=== PATIENT | male | born 1955 | race Caucasian/White ===

== ENCOUNTER 2017-11-23 19:49 | Emergency (ER) | payer OTHER ==
--- NOTE | 2017-11-23 20:02 | PDOC ---
Rapid Medical Evaluation Time Seen by Provider: 11/23/17 19:58 Medical Evaluation: Allergies Allergy/AdvReac Type Severity Reaction Status Date / Time No Known Allergies Allergy Verified 05/05/13 14:03 11/23/17 19:58 I have performed a brief in -person evaluation of this patient. The patient presents with a chief complaint of: SOB, breathed in cleaning solution/ [employer] [place]. Pt states poured grounds cleaner down the drain @~1000 today , "fumes" peppered face causing him to breath in. 2004hrs: Called Poison control [phone]. 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 m,ay cause Throat/nasal passage irritation. CXr to check for infiltrates Neg tx prn for SOB Supportive burn care Irrigation Pertinent physical exam findings:B/L LL exp wheezing I have ordered the following: ekg The patient will proceed to the ED for further evaluation.
[2017-11-23 20:03] VITALS: BP 142/98; PULSE 123; TEMP 97.7; BMI 30.8
--- NOTE | 2017-11-23 22:03 | PDOC ---
History of Present Illness - General Chief Complaint: Shortness of Breath Stated Complaint: FATIGUE Time Seen by Provider: 11/23/17 19:58 History Source: Patient Exam Limitations: No Limitations - History of Present Illness Initial Comments: CHIEF COMPLAINT: 62 y/o afebrile male with PMH IDDM, CAD with 1 stent (on plavix), HTN, HLD, asthma c/o difficulty breathing after inhaling EL [place] solution at approximately 10am this morning. HISTORY OF PRESENT ILLNESS: The patient was trying to unclog his bathroom drain. WHen he poured the solution down the drain there were fumes. He tried to open all the windows but he states he inhaled it and he has had difficulty breathing since then. He denies f/c, dizziness, n/v/d, ZULETA, neck pain, changes to vision/hearing, abd pain. Vital signs on arrival are notable for pulse of 123 with O2 sat of 95% on RA.. REVIEW OF SYSTEMS: GENERAL/CONSTITUTIONAL: No fever/chills. No weakness. No weight change. HEAD, EYES, EARS, NOSE AND THROAT: No change in vision. No ear pain or discharge. No sore throat. CARDIOVASCULAR: +SOB. No chest pain. RESPIRATORY: +dry cough. No wheezing, or hemoptysis. GASTROINTESTINAL: No abd pain, nausea, vomiting, diarrhea. GENITOURINARY: No dysuria, frequency, or change in urination. MUSCULOSKELETAL: No joint or muscle swelling or pain. No neck or back pain. SKIN: No rash or easy bruising. NEUROLOGIC: No headache, vertigo, loss of consciousness, or loss of sensation. PHYSICAL EXAM: GENERAL: The patient is awake, alert, and fully oriented, in no acute distress. HEAD: Normal with no signs of trauma. ENT: Pupils equal, round and reactive to light, extraocular movements intact, sclera anicteric, conjunctiva clear. Dry cough. LUNGS: Expiratory wheezing across all posterior lung camarena. CV: RRR, S1/S2, no MRG. Cap refill < 2 sec. ABDOMEN: Soft, non-distended, non-tender even to deep palpation, no hepatomegaly or splenomegaly, no masses. EXTREMITIES: Normal range of motion, no edema. NEUROLOGICAL: Normal speech, normal gait. CN II-XII grossly intact. SKIN: Warm, dry, normal turgor, no rashes or lesions noted. Past History - Past Medical History Allergies/Adverse Reactions: Allergies Allergy/AdvReac Type Severity Reaction Status Date / Time No Known Allergies Allergy Verified 05/05/13 14:03 Home Medications: Ambulatory Orders Atorvastatin Ca [Lipitor] 40 mg PO DAILY 05/05/13 Metformin HCl [Glucophage -] 1,000 mg PO BID 05/05/13 Pregabalin [Lyrica] 150 mg PO Q12H 05/05/13 Albuterol Sulfate Inhaler - [Ventolin HFA Inhaler -] 1 - 2 inh PO PRN 11/23/15 Aspirin Coated [Ecotrin -] 81 mg PO DAILY 11/23/15 Enalapril Maleate [Vasotec -] 2.5 mg PO DAILY 11/23/15 Isosorbide Mononitrate [Imdur -] 30 mg PO DAILY 11/23/15 Metoprolol Succinate [Toprol Xl] 50 mg PO DAILY 11/23/15 Ramipril [Altace] 5 mg PO DAILY 11/23/15 Calcium Carbonate/Vitamin D3 [Calcium 600/Vit D 400 Caplet] 1 each PO BID Cyanocobalamin [Vitamin B12 -] 1,000 mcg PO DAILY 11/24/15 Insulin Aspart Prot/Insuln Asp [Novolog Mix 70-30 Vial] 20 unit SQ ACBK Insulin Aspart Prot/Insuln Asp [Novolog Mix 70-30 Vial] 30 unit SQ ACDIN Milk Thistle Seed Extract [Milk Thistle Extract] 175 mg PO DAILY 11/24/15 Naproxen [Naprosyn -] 500 mg PO PRN PRN 11/24/15 Anemia: No Asthma: Yes Cancer: No Cardiac Disorders: Yes ([place]) CVA: No COPD: No CHF: No Dementia: No Diabetes: Yes (INSULIN DEPENDENT DIABETES) GI Disorders: Yes (INTERMITTENT L,MID , RIGHT ABDOMINAL PAIN) Disorders: No HTN: No Hypercholesterolemia: Yes Liver Disease: No Seizures: No Thyroid Disease: No - Surgical History Abdominal Surgery: No Appendectomy: No Cardiac Surgery: Yes (CARDIAC CATH.WITH DRUG ELUTING CARDIAC STENT) Cholecystectomy: No Lung Surgery: No Neurologic Surgery: No Orthopedic Surgery: No - Suicide/Smoking/Psychosocial Hx Smoking History: Current every day smoker Have you smoked in the past 12 months: Yes Number of Cigarettes Smoked Daily: 6 Information on smoking cessation initiated: No 'Breaking Loose' booklet given: 11/30/15 Hx Alcohol Use: No Drug/Substance Use Hx: No Substance Use Type: None *Physical Exam - Vital Signs Last Vital Signs Temp Pulse Resp BP Pulse Ox 97.7 F 123 H 20 142/98 95 11/23/17 19:58 11/23/17 19:58 11/23/17 19:58 11/23/17 19:58 11/23/17 19:58 ED Treatment Course - RADIOLOGY Radiology Studies Ordered: Category Date Time Status CHEST PA & LAT [RAD] Stat Radiology 11/23/17 21:53 Ordered Medical Decision Making - Medical Decision Making A/P: 62 y/o male with SOB after inhaling [place] solution at 10am ( approximately 12 hours ago). scott Gandhi Harrison NUR called Poison Control. The intructions are below: 2004hrs: Called Poison control [phone]. 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 m,ay cause Throat/nasal passage irritation. CXr to check for infiltrates Neg tx prn for SOB Supportive burn care Irrigation Ordered EKG, CXR and duonebs. Pt remains tachycardic and has an abnormal EKG. Will send to main ER for cardiac workup *DC/Admit/Observation/Transfer Diagnosis at time of Disposition: Inhalation injury, Shortness of breath - Discharge Dispostion Condition at time of disposition: Improved - Referrals Referrals: Ty Ordaz MD [Primary Care Provider] - - Patient Instructions Printed Discharge Instructions: DI for Inhalation Injury - Post Discharge Activity
[2017-11-23] MEDS ORDERED: ALBUTEROL SO4 2.5/IPRATROPIUM 0.5 INH SOL 3 ML VIAL.NEB. NEB ONE (22:04)
[2017-11-23] MEDS: ALBUTEROL SO4 2.5/IPRATROPIUM 0.5 INH SOL 3 ML VIAL.NEB. NEB SCH ×2 (22:14→22:58)
--- NOTE | 2017-11-25 11:36 | EKG ---
Test Reason : Blood Pressure : / mmHG Vent. Rate : 107 BPM Atrial Rate : 107 BPM P-R Int : 142 ms QRS Dur : 136 ms QT Int : 382 ms P-R-T Axes : 073 089 035 degrees QTc Int : 509 ms SINUS TACHYCARDIA RIGHT BUNDLE BRANCH BLOCK ABNORMAL ECG WHEN COMPARED WITH ECG OF 17-NOV-2010 14:46, RIGHT BUNDLE BRANCH BLOCK IS NOW PRESENT Confirmed by AZIZA ZAVALA MD ([id number]) on 11/25/2017 11:36:24 AM Referred By: KARTHIK Confirmed By:AZIZA ZAVALA MD
== END 2017-11-23 23:28 | disposition home or self-care (01) ==
LOC: JER 19:49 → JERFT 19:49 → JER 23:28
PROC: 3E0F7GC Introduction of Other Therapeutic Substance into Respiratory Tract, Via Natural or Artificial Opening (ICD-10-PCS; principal; 2017-11-23)
DX: T65.891A Toxic effect of other specified substances, accidental (unintentional), initial encounter (principal); R06.02 Shortness of breath; Y92.038 Other place in apartment as the place of occurrence of the external cause; I25.10 Atherosclerotic heart disease of native coronary artery without angina pectoris; I10 Essential (primary) hypertension; F17.210 Nicotine dependence, cigarettes, uncomplicated; Z95.5 Presence of coronary angioplasty implant and graft; E11.9 Type 2 diabetes mellitus without complications; Z79.4 Long term (current) use of insulin; E78.00 Pure hypercholesterolemia, unspecified
CPT/HCPCS: 71046-TC; 93005; 93010; 94640; 99281-25

== ENCOUNTER 2018-05-19 22:06 | Emergency (ER) | payer OTHER ==
[2018-05-19 22:20] VITALS: BP 143/66; PULSE 102; BMI 32.5
--- NOTE | 2018-05-20 00:12 | PDOC ---
History of Present Illness - General History Source: Patient, Significant Other Exam Limitations: No Limitations <Karlene Torrez - Last Filed: 05/20/18 01:15> <RlMaría Anne - Last Filed: 05/20/18 02:04> - General Chief Complaint: Palpitations Stated Complaint: CHEST PAIN Time Seen by Provider: 05/19/18 22:39 - History of Present Illness Initial Comments: 05/20/18 00:45 The patient is a 62 year old male with a significant PMHx of IDDM, CAD, [place] s/p 1 stent (on plavix), HTN, HLD, asthma, who presents accompanied by his for evaluation of palpitations and chest pain around 7:30PM. The patient states he was lying on the couch when he felt "palpitations". He states he told his of his palpitations who then became very concerned and insisted the patient come to the ED. The patient states his provoked his chest pain. He describes the pain as a localized tightness to his midsternal region, 7/10 in severity and constant. He denies palpitations now and states his chest discomfort has subsided to about a 5/10. He reportedly took "half of a 5mg Valium" along with an aspirin. He states his made him come and he does not want any labs drawn. He denies any other complaints. He states he has an appointment with Dr. Gamble next week. He reports a normal echo last month. The patient denies shortness of breath, headache and dizziness. The patient denies fever, chills, nausea, vomit, diarrhea and constipation. The patient denies dysuria, frequency, urgency and hematuria. Allergies: NKDA Past surgical history: Social history: PCP - Dr. Ty Ordaz Cards: Dr. Gamble (Karlene Torrez) Past History <Karlene Torrez - Last Filed: 05/20/18 01:15> - Past Medical History Anemia: No Asthma: Yes Cancer: No Cardiac Disorders: Yes ([place]) CVA: No COPD: No CHF: No Dementia: No Diabetes: Yes (INSULIN DEPENDENT DIABETES) GI Disorders: Yes (INTERMITTENT L,MID , RIGHT ABDOMINAL PAIN) Disorders: No HTN: No Hypercholesterolemia: Yes Liver Disease: No Seizures: No Thyroid Disease: No - Surgical History Abdominal Surgery: No Appendectomy: No Cardiac Surgery: Yes (CARDIAC CATH.WITH DRUG ELUTING CARDIAC STENT) Cholecystectomy: No Lung Surgery: No Neurologic Surgery: No Orthopedic Surgery: No - Suicide/Smoking/Psychosocial Hx Smoking History: Current every day smoker Have you smoked in the past 12 months: Yes Number of Cigarettes Smoked Daily: 10 Information on smoking cessation initiated: No 'Breaking Loose' booklet given: 11/30/15 Hx Alcohol Use: No Drug/Substance Use Hx: No Substance Use Type: None <María Shine - Last Filed: 05/20/18 02:04> - Past Medical History Allergies/Adverse Reactions: Allergies Allergy/AdvReac Type Severity Reaction Status Date / Time No Known Allergies Allergy Verified 05/05/13 14:03 Home Medications: Ambulatory Orders Atorvastatin Ca [Lipitor] 40 mg PO DAILY 05/05/13 Pregabalin [Lyrica] 150 mg PO Q12H 05/05/13 metFORMIN HCL [Glucophage -] 1,000 mg PO BID 05/05/13 Albuterol Sulfate Inhaler - [Ventolin HFA Inhaler -] 1 - 2 inh PO PRN 11/23/15 Aspirin Coated [Ecotrin -] 81 mg PO DAILY 11/23/15 Enalapril Maleate [Vasotec -] 2.5 mg PO DAILY 11/23/15 Isosorbide Mononitrate [Imdur -] 30 mg PO DAILY 11/23/15 Metoprolol Succinate [Toprol Xl] 50 mg PO DAILY 11/23/15 Ramipril [Altace] 5 mg PO DAILY 11/23/15 Calcium Carbonate/Vitamin D3 [Calcium 600/Vit D 400 Caplet] 1 each PO BID Cyanocobalamin [Vitamin B12 -] 1,000 mcg PO DAILY 11/24/15 Insulin Aspart Prot/Insuln Asp [Novolog Mix 70-30 Vial] 20 unit SQ ACBK Insulin Aspart Prot/Insuln Asp [Novolog Mix 70-30 Vial] 30 unit SQ ACDIN Milk Thistle Seed Extract [Milk Thistle Extract] 175 mg PO DAILY 11/24/15 Naproxen [Naprosyn -] 500 mg PO PRN PRN 11/24/15 Cardiac Specific PMH - Complaint Specific PMHX Pacemaker: No <María Shine - Last Filed: 05/20/18 02:04> Review of Systems - Review of Systems Able to Perform ROS?: Yes <Karlene Torrez - Last Filed: 05/20/18 01:15> <María Shine - Last Filed: 05/20/18 02:04> - Review of Systems Comments:: 05/20/18 00:45 CONSTITUTIONAL: Absent: fever, chills, diaphoresis, generalized weakness, malaise, loss of appetite HEENT: Absent: rhinorrhea, nasal congestion, throat pain, throat swelling, difficulty swallowing, mouth swelling, ear pain, eye pain, visual Changes CARDIOVASCULAR: (+) chest pain, palpitations, Absent: syncope,irregular heart rate, lightheadedness, peripheral edema RESPIRATORY: Absent: cough, shortness of breath, dyspnea with exertion, orthopnea, wheezing, stridor, hemoptysis GASTROINTESTINAL: Absent: abdominal pain, abdominal distension, nausea, vomiting, diarrhea, constipation, melena, hematochezia GENITOURINARY: Absent: dysuria, frequency, urgency, hesitancy, hematuria, flank pain, genital pain MUSCULOSKELETAL: Absent: myalgia, arthralgia, joint swelling SKIN: Absent: rash, itching, pallor HEMATOLOGIC/IMMUNOLOGIC: Absent: easy bleeding, easy bruising, lymphadenopathy, frequent infections ENDOCRINE: Absent: unexplained weight gain, unexplained weight loss, heat intolerance, cold intolerance NEUROLOGIC: Absent: headache, focal weakness or paresthesias, dizziness, unsteady gait, seizure, mental status changes, bladder or bowel incontinence PSYCHIATRIC: Absent: anxiety, depression, suicidal or homicidal ideation, hallucinations. (Karlene Torrez) *Physical Exam <Karlene Torrez - Last Filed: 05/20/18 01:15> <María Shine - Last Filed: 05/20/18 02:04> - Vital Signs Last Vital Signs Temp Pulse Resp BP Pulse Ox 102 H 20 143/66 98 05/19/18 22:15 05/19/18 22:15 05/19/18 22:15 05/19/18 22:15 - Physical Exam Comments: 05/20/18 00:46 GENERAL: Well developed, well nourished. Awake and alert. No acute distress. HEENT: Normocephalic, atraumatic. PERRLA, EOMI. No conjunctival pallor. Sclera are non- icteric. Moist mucous membranes. Oropharynx is clear. NECK: Supple. Full ROM. No JVD. Carotid pulses 2+ and symmetric, without bruits. No thyromegaly. No lymphadenopathy. CARDIOVASCULAR: Regular rate and rhythm. No murmurs, rubs, or gallops. Distal pulses are 2+ and symmetric. PULMONARY: No evidence of respiratory distress. Lungs clear to auscultation bilaterally. No wheezing, rales or rhonchi. ABDOMINAL: protuberant. Soft. Non-tender. Non-distended. No rebound or guarding. No organomegaly. Normoactive bowel sounds. MUSCULOSKELETAL Normal range of motion at all joints. No bony deformities or tenderness. No CVA tenderness. EXTREMITIES: No cyanosis. No clubbing. No edema. No calf tenderness. SKIN: Warm and dry. Normal capillary refill. No rashes. No jaundice. NEUROLOGICAL: Alert, awake, appropriate. Cranial nerves 2-12 intact. Normoreflexic in the upper and lower extremities. Normal speech. Toes are down-going bilaterally. Gait is normal without ataxia. PSYCHIATRIC: Cooperative. Good eye contact. Appropriate mood and affect. (Karlene Torrez) Medical Decision Making <Karlene Torrez - Last Filed: 05/20/18 01:15> <María Shine - Last Filed: 05/20/18 02:04> - Medical Decision Making 05/20/18 02:00 I had an extensive discussion w this pot who arrived with his after having an episode of palpitations and chest pain -he had a h/o CAD, with TN in the past -his ekg was compared to a prior ekg done NOV 2017 and the RBBB is unchanged ( María Shine) *DC/Admit/Observation/Transfer <Karlene Torrez - Last Filed: 05/20/18 01:15> <María Shine - Last Filed: 05/20/18 02:04> Diagnosis at time of Disposition: Palpitations - Discharge Dispostion Disposition: AGAINST MEDICAL ADVICE Condition at time of disposition: Unchanged/Unknown - Referrals Referrals: Ty Ordaz MD [Primary Care Provider] - - Patient Instructions Printed Discharge Instructions: DI for Palpitations Additional Instructions: See your peoplesoft hcm developer this week return for any recurrent symptoms - Post Discharge Activity - Attestations Scribe Attestion: 05/20/18 01:23 Documentation prepared by Karlene Torrez, acting as medical reviewer for María Shine MD (Karlene Torrez)
--- NOTE | 2018-05-21 13:07 | EKG ---
Test Reason : Blood Pressure : / mmHG Vent. Rate : 099 BPM Atrial Rate : 099 BPM P-R Int : 142 ms QRS Dur : 136 ms QT Int : 380 ms P-R-T Axes : 076 089 024 degrees QTc Int : 487 ms NORMAL SINUS RHYTHM RIGHT BUNDLE BRANCH BLOCK ABNORMAL ECG WHEN COMPARED WITH ECG OF 23-NOV-2017 22:24, NO SIGNIFICANT CHANGE WAS FOUND Confirmed by MD MARGUERITE, CHRISTOS ([id number]) on 05/21/2018 1:07:29 PM Referred By: Confirmed By:CHRISTOS EVERETT MD
== END 2018-05-20 00:31 | disposition left against medical advice (07) ==
LOC: JER 22:06
DX: R00.2 Palpitations (principal); E11.9 Type 2 diabetes mellitus without complications; I25.2 Old myocardial infarction; I25.10 Atherosclerotic heart disease of native coronary artery without angina pectoris; I10 Essential (primary) hypertension; E78.5 Hyperlipidemia, unspecified
CPT/HCPCS: 93005; 93010; 99281-25

== ENCOUNTER 2018-12-25 14:25 | Emergency (ER) | payer OTHER ==
--- NOTE | 2018-12-25 15:03 | PDOC ---
Rapid Medical Evaluation Time Seen by Provider: 12/25/18 15:00 Medical Evaluation: Allergies Allergy/AdvReac Type Severity Reaction Status Date / Time No Known Allergies Allergy Verified 05/05/13 14:03 12/25/18 15:00 I have performed a brief in-person evaluation of this patient. The patient presents with a chief complaint of: Toenail injury while cutting R great toe last night. Bled a lot last night, since resolved. No pain, redness, f /c. H/o IDDM Pertinent physical exam findings: deferred to ED I have ordered the following:nothing The patient will proceed to the ED for further evaluation. Discharge Disposition - Diagnosis Injury of toenail Qualifiers: Encounter type: initial encounter Laterality: right Qualified Code(s): S99.921A - Unspecified injury of right foot, initial encounter - Referrals - Patient Instructions - Post Discharge Activity
[2018-12-25 15:04] VITALS: BP 104/74; PULSE 100; TEMP 97.9; BMI 29.5
== END 2018-12-25 15:36 | disposition home or self-care (01) ==
LOC: JERFT 14:25
DX: S99.921A Unspecified injury of right foot, initial encounter (principal); X58.XXXA Exposure to other specified factors, initial encounter; Y93.89 Activity, other specified; Y92.89 Other specified places as the place of occurrence of the external cause; E11.9 Type 2 diabetes mellitus without complications
CPT/HCPCS: 99281-25

== ENCOUNTER 2020-01-14 21:48 | Emergency (ER) | payer OTHER ==
[2020-01-14 21:55] VITALS: BP 129/85; BMI 22.1
--- NOTE | 2020-01-14 23:04 | PDOC ---
*Physical Exam - Vital Signs Last Vital Signs Temp Pulse Resp BP Pulse Ox 100.6 F H 122 H 20 129/85 97 01/14/20 23:01 01/14/20 23:01 01/14/20 23:01 01/14/20 21:52 01/14/20 23:01 ED Treatment Course - LABORATORY CBC & Chemistry Diagram: 01/14/20 23:30 01/14/20 23:30 Medical Decision Making - Medical Decision Making 01/14/20 23:04 Patient seen by the advanced practice provider under my supervision. Ancillary testing reviewed as necessary. I agree with plan as outlined by the advanced practice provider. Discharge - Discharge Information Problems reviewed: Yes Clinical Impression/Diagnosis: Fever Qualifiers: Fever type: unspecified Qualified Code(s): R50.9 - Fever, unspecified Disposition: AGAINST MEDICAL ADVICE - Follow up/Referral Referrals: Ty Ordaz MD [Primary Care Provider] - 2 Days - Patient Discharge Instructions Patient Printed Discharge Instructions: DI for Viral Syndrome Additional Instructions: Thank you for choosing [facility]. It was a pleasure taking care of you. You were noted to have fever You were recommended to stay for CT scan of abdomen to rule out other causes of fever, but refused to get one done Risks of not getting full testing include: worsening of condition, Be sure to follow-up with your doctor in 2 days Return to the Emergency Department for any concerning symptoms. - Post Discharge Activity
[2020-01-14] MEDS ORDERED: ACETAMINOPHEN 325 MG TABLET (FP) PO ONE (23:12)
[2020-01-14] MEDS ORDERED: SODIUM CHLORIDE 1,000 ML IV STA (23:14)
[2020-01-14] MEDS ORDERED: ACETAMINOPHEN 325 MG TABLET (FP) ONE (23:18)
[2020-01-14 23:44] LABS: BASO % 0.5 % (0-2.0); HEMOGLOBIN 14.5 GM/dL (11.7-16.9); LYMPH % 18.3 % (8-40); MCH 30.9 pg (25.7-33.7); MCHC 33.1 g/dl (32.0-35.9); MEAN CELL VOLUME 93.3 fl (80-96); MEAN PLT VOLUME 7.9 fl (7.5-11.1); MONO % 11.3 % (3.8-10.2); NEUT % 66.9 % (42.8-82.8); PLATELET COUNT 238 K/MM3 (134-434); RBC 4.71 M/mm3 (4.00-5.60); RDW 14.7 % (11.9-15.9); WHITE BLOOD COUNT 6.4 K/mm3 (4.0-10.0)
[2020-01-15 00:34] LABS: EPI CELLS 0.3 /HPF (0-5/HPF); HYALINE CASTS 0 /lpf (0-8); PH,URINE 5.5 (5.0-8.0); URINE APPEARANCE CLEAR; URINE BACTERIA 0.7 /hpf (NEGATIVE); URINE BILIRUBIN NEGATIVE (NEGATIVE); URINE COLOR YELLOW; URINE GLUCOSE (UA) 3+ (NEGATIVE); URINE KETONE NEGATIVE (NEGATIVE); URINE LEUK ESTERASE NEGATIVE (NEGATIVE); URINE NITRITE NEGATIVE (NEGATIVE); URINE PROTEIN 3+ (NEGATIVE); URINE RBC 3 /hpf (0-4); URINE UROBILINOGEN 0.2 mg/dL (0.2-1.0); URINE WBC 0 /hpf (0-5)
[2020-01-15 01:05] LABS: ALBUMIN 3.4 g/dl (3.4-5.0); BILIRUBIN,TOTAL 0.4 mg/dL (0.2-1); BLOOD UREA NITROGEN 12.8 mg/dL (7-18); CREATININE 1.1 mg/dL (0.55-1.3); POTASSIUM 4.7 mmol/L (3.5-5.1); TOT PROT 6.9 g/dl (6.4-8.2)
[2020-01-15 01:42] VITALS: PULSE 115; TEMP 98.3
--- NOTE | 2020-01-15 01:42 | PDOC ---
History of Present Illness - General Chief Complaint: Vomiting/Diarrhea Stated Complaint: POSSIBLE POISONING Time Seen by Provider: 01/14/20 22:58 History Source: Patient Exam Limitations: No Limitations Past History - Past Medical History Allergies/Adverse Reactions: Allergies Allergy/AdvReac Type Severity Reaction Status Date / Time No Known Allergies Allergy Verified 01/14/20 21:55 Home Medications: Ambulatory Orders Atorvastatin Ca [Lipitor] 40 mg PO DAILY 05/05/13 Pregabalin [Lyrica] 150 mg PO Q12H 05/05/13 metFORMIN HCL [Glucophage -] 1,000 mg PO BID 05/05/13 Albuterol Sulfate Inhaler - [Ventolin HFA Inhaler -] 1 - 2 inh PO PRN 11/23/15 Aspirin Coated [Ecotrin -] 81 mg PO DAILY 11/23/15 Enalapril Maleate [Vasotec -] 2.5 mg PO DAILY 11/23/15 Isosorbide Mononitrate [Imdur -] 30 mg PO DAILY 11/23/15 Metoprolol Succinate [Toprol Xl] 50 mg PO DAILY 11/23/15 Ramipril [Altace] 5 mg PO DAILY 11/23/15 Calcium Carbonate/Vitamin D3 [Calcium 600/Vit D 400 Caplet] 1 each PO BID Cyanocobalamin [Vitamin B12 -] 1,000 mcg PO DAILY 11/24/15 Insulin Aspart Prot/Insuln Asp [Novolog Mix 70-30 Vial] 20 unit SQ ACBK Insulin Aspart Prot/Insuln Asp [Novolog Mix 70-30 Vial] 30 unit SQ ACDIN Milk Thistle Seed Extract [Milk Thistle Extract] 175 mg PO DAILY 11/24/15 Naproxen [Naprosyn -] 500 mg PO PRN PRN 11/24/15 Anemia: No Asthma: Yes Cancer: No Cardiac Disorders: Yes ([place]) CVA: No COPD: No CHF: No Dementia: No Diabetes: Yes (INSULIN DEPENDENT DIABETES) GI Disorders: Yes (INTERMITTENT L,MID , RIGHT ABDOMINAL PAIN) Disorders: No HTN: No Hypercholesterolemia: Yes Liver Disease: No Seizures: No Thyroid Disease: No - Surgical History Abdominal Surgery: No Appendectomy: No Cardiac Surgery: Yes (CARDIAC CATH.WITH DRUG ELUTING CARDIAC STENT) Cholecystectomy: No Lung Surgery: No Neurologic Surgery: No Orthopedic Surgery: No - Immunization History Immunization Up to Date: Yes - Psycho Social/Smoking Cessation Hx Smoking History: Never smoked Have you smoked in the past 12 months: Yes Number of Cigarettes Smoked Daily: 20 'Breaking Loose' booklet given: 11/30/15 Hx Alcohol Use: No Drug/Substance Use Hx: No Substance Use Type: None *Physical Exam - Vital Signs Last Vital Signs Temp Pulse Resp BP Pulse Ox 100.6 F H 122 H 20 129/85 97 01/14/20 23:01 01/14/20 23:01 01/14/20 23:01 01/14/20 21:52 01/14/20 23:01 - Physical Exam General Appearance: No: Apparent Distress HEENT: positive: Nasal Congestion. negative: Rhinorrhea Respiratory/Chest: positive: Lungs Clear, Normal Breath Sounds. negative: Respiratory Distress Cardiovascular: positive: Tachycardia. negative: Murmur Gastrointestinal/Abdominal: positive: Normal Bowel Sounds, Soft. negative: Tender, Distended, Guarding, Rebound Musculoskeletal: negative: CVA Tenderness, CVA Tenderness (R), CVA Tenderness (L ) Neurologic: positive: Alert ED Treatment Course - LABORATORY CBC & Chemistry Diagram: 01/14/20 23:30 01/14/20 23:30 - ADDITIONAL ORDERS Additional order review: Laboratory Results 01/14/20 01/14/20 01/14/20 23:30 23:30 11:14 Sodium 139 Potassium 4.7 Chloride 104 Carbon Dioxide 26 Anion Gap 8 BUN 12.8 Creatinine 1.1 Est GFR (CKD-EPI)AfAm 82.37 Est GFR (CKD-EPI)NonAf 71.07 Random Glucose 197 H Lactic Acid 2.3 H* Calcium 9.0 Total Bilirubin 0.4 AST 19 ALT 25 Alkaline Phosphatase 93 Total Protein 6.9 Albumin 3.4 Urine Color Yellow Urine Appearance Clear Urine pH 5.5 Ur Specific [place] 1.037 H Urine Protein 3+ H Urine Glucose (UA) 3+ H Urine Ketones Negative Urine Blood Trace Urine Nitrite Negative Urine Bilirubin Negative Urine Urobilinogen 0.2 Ur Leukocyte Esterase Negative Urine WBC (Auto) 0 Urine RBC (Auto) 3 Urine Casts (Auto) 0 U Epithel Cells (Auto) 0.3 Urine Bacteria (Auto) 0.7 01/14/20 23:30 RBC 4.71 MCV 93.3 MCHC 33.1 RDW 14.7 MPV 7.9 Neutrophils % 66.9 Lymphocytes % 18.3 Monocytes % 11.3 H Eosinophils % 3.0 Basophils % 0.5 - RADIOLOGY Radiology Studies Ordered: Category Date Time Status CHEST PA & LAT [RAD] Stat Radiology 01/14/20 23:14 Taken - Medications Given in the ED: ED Medications Discontinued Medications Generic Name Dose Route Start Last Admin Trade Name Khris PRN Reason Stop Dose Admin Acetaminophen 975 mg 01/14/20 23:12 01/14/20 23:33 Tylenol - PO 01/14/20 23:13 975 mg ONCE ONE Administration Sodium Chloride 1,000 mls @ 1,000 mls/hr 01/14/20 23:14 01/14/20 23:33 Normal Saline - IV 01/15/20 00:13 1,000 mls/hr ASDIR STA Administration Medical Decision Making - Medical Decision Making 64 y/o M with hx of IDDM, CAD s/p [place] s/p PCIx1, HTN, HLD, asthma presents as states he inhaled bleach 01/11 and then developed fever, chills, body aches, cough, congestion, NBNB vomiting, watery diarrhea. Comes into ED as having generalized weakness. States diarrhea has improved and had only 1 episode of diarrhea today. The vomiting stopped yesterday. Has not taken anything for fever as states does not have anything at home. Went to see his PCP 2 days ago and was given rx for Ciprofloxacin (unsure why). Also mentions his urine is hot. Denies sob, cp, dysuria, hematuria, recent travel. Labs reviewed Flu negative CXR wet read negative Urine negative Lactic acid is 2.3 Repeat temp is 98.3, but still tachycardic at 115 could be viral syndrome D/W Dr. Jaimes - recommends CT A/P for further assessment given patient's age However, patient refuses to stay for now as states someone in family needs to get to work Risks of leaving explained; patient is A&OX3, understands 01/15/20 01:37 Discharge - Discharge Information Problems reviewed: Yes Clinical Impression/Diagnosis: Fever Qualifiers: Fever type: unspecified Qualified Code(s): R50.9 - Fever, unspecified Disposition: AGAINST MEDICAL ADVICE - Admission Yes - Follow up/Referral Referrals: Ty Ordaz MD [Primary Care Provider] - 2 Days - Patient Discharge Instructions Patient Printed Discharge Instructions: DI for Viral Syndrome Additional Instructions: Thank you for choosing [facility]. It was a pleasure taking care of you. You were noted to have fever You were recommended to stay for CT scan of abdomen to rule out other causes of fever, but refused to get one done Risks of not getting full testing include: worsening of condition, Be sure to follow-up with your doctor in 2 days Return to the Emergency Department for any concerning symptoms. - Post Discharge Activity
== END 2020-01-15 01:59 | disposition left against medical advice (07) ==
LOC: JER 21:48
PROC: 3E0337Z Introduction of Electrolytic and Water Balance Substance into Peripheral Vein, Percutaneous Approach (ICD-10-PCS; principal; 2020-01-14)
DX: B34.9 Viral infection, unspecified (principal); I25.10 Atherosclerotic heart disease of native coronary artery without angina pectoris; I10 Essential (primary) hypertension; Z95.5 Presence of coronary angioplasty implant and graft; I25.2 Old myocardial infarction; E11.9 Type 2 diabetes mellitus without complications; Z79.4 Long term (current) use of insulin; E78.5 Hyperlipidemia, unspecified; J45.909 Unspecified asthma, uncomplicated
CPT/HCPCS: 36415; 71046-TC-FY; 80053; 81003; 83605; 85025; 87086; 87804; 99284-25; J7030

== ENCOUNTER 2020-01-15 11:37 | Emergency (ER) | payer OTHER ==
[2020-01-15 11:42] VITALS: TEMP 98; BMI 22.1
--- NOTE | 2020-01-15 12:31 | PDOC ---
History of Present Illness - General Chief Complaint: Revisit,Radiology Variance Stated Complaint: FOLLOW UP Time Seen by Provider: 01/15/20 12:24 History Source: Patient Exam Limitations: No Limitations - History of Present Illness Initial Comments: 01/15/20 12:34 64 yo M with a hx of IDDM, CAD s/p AL s/p 1x stent, HTN, HLD, asthma, recent accidental inhalation of bleach on 01/11 with subsequently development of fevers , chills, body aches, cough, congestion, NBNB vomiting, and watery diarrhea who presented to the emergency department yesterday for generalized weakness subsequently leaving AMA with an elevated lactic acid and tachycardia re- presenting to the emergency department for follow up imaging. Per the patient, he has had generalized abdominal pain with nausea and vomiting for 4 days with resolution of diarrhea. In addition, the patient denies recent travels. Denies the following: fevers, chills, dysuria, hematuria, leg pain/swelling. Past History - Past Medical History Allergies/Adverse Reactions: Allergies Allergy/AdvReac Type Severity Reaction Status Date / Time No Known Allergies Allergy Verified 01/14/20 21:55 Home Medications: Ambulatory Orders Atorvastatin Ca [Lipitor] 40 mg PO DAILY 05/05/13 Pregabalin [Lyrica] 150 mg PO Q12H 05/05/13 metFORMIN HCL [Glucophage -] 1,000 mg PO BID 05/05/13 Albuterol Sulfate Inhaler - [Ventolin HFA Inhaler -] 1 - 2 inh PO PRN 11/23/15 Aspirin Coated [Ecotrin -] 81 mg PO DAILY 11/23/15 Enalapril Maleate [Vasotec -] 2.5 mg PO DAILY 11/23/15 Isosorbide Mononitrate [Imdur -] 30 mg PO DAILY 11/23/15 Metoprolol Succinate [Toprol Xl] 50 mg PO DAILY 11/23/15 Ramipril [Altace] 5 mg PO DAILY 11/23/15 Calcium Carbonate/Vitamin D3 [Calcium 600/Vit D 400 Caplet] 1 each PO BID Cyanocobalamin [Vitamin B12 -] 1,000 mcg PO DAILY 11/24/15 Insulin Aspart Prot/Insuln Asp [Novolog Mix 70-30 Vial] 20 unit SQ ACBK Insulin Aspart Prot/Insuln Asp [Novolog Mix 70-30 Vial] 30 unit SQ ACDIN Milk Thistle Seed Extract [Milk Thistle Extract] 175 mg PO DAILY 11/24/15 Naproxen [Naprosyn -] 500 mg PO PRN PRN 11/24/15 Anemia: No Asthma: Yes Cancer: No Cardiac Disorders: Yes (AL) CVA: No COPD: No CHF: No Dementia: No Diabetes: Yes (INSULIN DEPENDENT DIABETES) GI Disorders: Yes (INTERMITTENT L,MID , RIGHT ABDOMINAL PAIN) Disorders: No HTN: No Hypercholesterolemia: Yes Liver Disease: No Seizures: No Thyroid Disease: No - Surgical History Abdominal Surgery: No Appendectomy: No Cardiac Surgery: Yes (CARDIAC CATH.WITH DRUG ELUTING CARDIAC STENT) Cholecystectomy: No Lung Surgery: No Neurologic Surgery: No Orthopedic Surgery: No - Immunization History Immunization Up to Date: Yes - Psycho Social/Smoking Cessation Hx Smoking History: Smoker current status UNK Have you smoked in the past 12 months: Yes Number of Cigarettes Smoked Daily: 20 'Breaking Loose' booklet given: 11/30/15 Hx Alcohol Use: No Drug/Substance Use Hx: No Substance Use Type: None Review of Systems - Review of Systems Constitutional: Yes: Weakness. No: Chills, Diaphoresis, Fever HEENTM: No: Eye Pain, Ear Pain, Nose Pain, Throat Pain, Mouth Pain Respiratory: No: Cough, Shortness of Breath, Hemoptysis Cardiac (ROS): No: Chest Pain, Lightheadedness, Palpitations, Chest Tightness ABD/GI: Yes: Diarrhea, Nausea, Vomiting, Abdominal cramping. No: Constipated, Poor Appetite, Poor Fluid Intake, Rectal Bleeding, Tarry Stools : No: Burning, Hematuria Musculoskeletal: No: Back Pain, Joint Pain, Neck Pain Integumentary: No: Bruising, Erythema, Rash Neurological: No: Headache, Numbness, Tingling, Tremors Psychiatric: No: Change in Appetite Endocrine: No: Unexplained Weight Loss Hematologic/Lymphatic: No: Anemia *Physical Exam - Vital Signs Last Vital Signs Temp Pulse Resp BP Pulse Ox 98 F 112 H 20 100/50 L 99 01/15/20 11:41 01/15/20 11:41 01/15/20 11:41 01/15/20 11:41 01/15/20 11:41 - Physical Exam General Appearance: Yes: Nourished, Appropriately Dressed. No: Apparent Distress, Intoxicated HEENT: positive: EOMI, EMPERATRIZ, Normal Voice, Symmetrical, Pharynx Normal, Hearing Grossly Normal. negative: Pale Conjunctivae, Scleral Icterus (R), Scleral Icterus (L), Muffled/Hoarse voice, Pharyngeal Erythema, Tonsillar Exudate, Tonsillar Erythema, Nasal Congestion, Rhinorrhea, Sinus Tenderness, Excessive drooling Neck: positive: Trachea midline, Supple. negative: Tender, Lymphadenopathy (R) , Lymphadenopathy (L), Tender lateral, Tender midline Respiratory/Chest: positive: Lungs Clear, Normal Breath Sounds. negative: Chest Tender, Respiratory Distress, Accessory Muscle Use, Rhonchi, Stridor, Wheezing Cardiovascular: positive: Regular Rhythm, Regular Rate, S1, S2. negative: Systolic Murmur Gastrointestinal/Abdominal: positive: Normal Bowel Sounds, Flat, Soft. negative : Tender, Distended, Guarding, Rebound, Hepatomegaly Lymphatic: negative: Adenopathy Musculoskeletal: positive: Normal Inspection. negative: CVA Tenderness, Vertebral Tenderness Extremity: positive: Normal Capillary Refill, Normal Inspection, Normal Range of Motion. negative: Tender, Swelling, Calf Tenderness Integumentary: positive: Normal Color, Dry, Warm Neurologic: positive: Alert, Normal Mood/Affect Vital Signs - Vital Signs #1 Blood Pressure: 121/89 BP Location: Right Arm Blood Pressure Position: Sitting Pulse Rate: 98 O2 Sat by Pulse Oximetry (%): 100 ED Treatment Course - LABORATORY CBC & Chemistry Diagram: 01/15/20 12:57 01/15/20 12:57 Medical Decision Making - Medical Decision Making 64 yo M with a hx of IDDM, CAD s/p AL s/p 1x stent, HTN, HLD, asthma, recent accidental inhalation of bleach on 01/11 with subsequently development of fevers , chills, body aches, cough, congestion, NBNB vomiting, and watery diarrhea who presented to the emergency department yesterday for generalized weakness subsequently leaving AMA with an elevated lactic acid and tachycardia re- presenting to the emergency department for follow up imaging. Initial vitals: Initial Vital Signs Temp Pulse Resp BP Pulse Ox 98 F 112 H 20 100/50 L 99 01/15/20 11:41 01/15/20 11:41 01/15/20 11:41 01/15/20 11:41 01/15/20 11:41 ddx: patient presents to the emergency department with follow up imaging after AMAing from the department last night with continued tachycardia and lactic acid elevation Will repeat labs differential diagnosis includes: mesenteric ischemia vs ischemic colitis vs viral gastroenteritis vs gastritis vs GERD vs UTI vs intra-abominal process ( divertculitis vs colitis vs appendicitis) vs pancreatitis. For the tachycardia, will obtain troponin to rule out ACS and d-dimer to rule out PE. POCUS performed by the US team in the ED shows normal GB with normal CBD diameter. No hydro noted on the right side. EKG: NSR with [address] elevations or depressions with incomplete RBBB. Laboratory Tests 01/15/20 01/15/20 01/15/20 12:57 12:57 12:57 WBC 5.6 RBC 4.72 Hgb 14.7 Hct 43.9 MCV 93.0 MCH 31.1 MCHC 33.4 RDW 14.8 Plt Count 236 MPV 8.0 Absolute Neuts (auto) 3.5 Neutrophils % 62.1 Lymphocytes % 22.8 D Monocytes % 10.7 H Eosinophils % 3.9 Basophils % 0.5 Nucleated RBC % 0 PT with INR INR PTT (Actin FS) D-Dimer VBG pH POC VBG pCO2 POC VBG pO2 VBG HCO3 VBG O2 Sat (Manish) VBG Base Excess Sodium 140 Potassium 4.3 Chloride 108 H Carbon Dioxide 25 Anion Gap 6 L BUN 13.3 Creatinine 1.0 Est GFR (CKD-EPI)AfAm 92.42 Est GFR (CKD-EPI)NonAf 79.75 Random Glucose 161 H Lactic Acid 1.4 Calcium 8.9 Total Bilirubin 0.2 AST 17 ALT 26 Alkaline Phosphatase 83 Troponin I < 0.02 Total Protein 6.5 Albumin 3.2 L Lipase 115 Urine Color Urine Appearance Urine pH Ur Specific [place] Urine Protein Urine Glucose (UA) Urine Ketones Urine Blood Urine Nitrite Urine Bilirubin Urine Urobilinogen Ur Leukocyte Esterase Urine WBC (Auto) Urine RBC (Auto) Urine Casts (Auto) U Epithel Cells (Auto) Urine Bacteria (Auto) 01/15/20 01/15/20 01/15/20 13:10 13:10 14:16 WBC RBC Hgb Hct MCV MCH MCHC RDW Plt Count MPV Absolute Neuts (auto) Neutrophils % Lymphocytes % Monocytes % Eosinophils % Basophils % Nucleated RBC % PT with INR 11.30 INR 0.96 PTT (Actin FS) 34.5 D-Dimer VBG pH 7.30 L POC VBG pCO2 52.1 H POC VBG pO2 < 49 H VBG HCO3 24.9 VBG O2 Sat (Mansih) 22.5 L VBG Base Excess -1.8 Sodium Potassium Chloride Carbon Dioxide Anion Gap BUN Creatinine Est GFR (CKD-EPI)AfAm Est GFR (CKD-EPI)NonAf Random Glucose Lactic Acid Calcium Total Bilirubin AST ALT Alkaline Phosphatase Troponin I Total Protein Albumin Lipase Urine Color Yellow Urine Appearance Clear Urine pH 5.5 Ur Specific [place] 1.024 Urine Protein 2+ H Urine Glucose (UA) 3+ H Urine Ketones Negative Urine Blood Negative Urine Nitrite Negative Urine Bilirubin Negative Urine Urobilinogen 0.2 Ur Leukocyte Esterase Negative Urine WBC (Auto) 0 Urine RBC (Auto) 1 Urine Casts (Auto) 0 U Epithel Cells (Auto) 0.5 Urine Bacteria (Auto) 1.0 01/15/20 14:16 WBC RBC Hgb Hct MCV MCH MCHC RDW Plt Count MPV Absolute Neuts (auto) Neutrophils % Lymphocytes % Monocytes % Eosinophils % Basophils % Nucleated RBC % PT with INR INR PTT (Actin FS) D-Dimer 388 VBG pH POC VBG pCO2 POC VBG pO2 VBG HCO3 VBG O2 Sat (Manish) VBG Base Excess Sodium Potassium Chloride Carbon Dioxide Anion Gap BUN Creatinine Est GFR (CKD-EPI)AfAm Est GFR (CKD-EPI)NonAf Random Glucose Lactic Acid Calcium Total Bilirubin AST ALT Alkaline Phosphatase Troponin I Total Protein Albumin Lipase Urine Color Urine Appearance Urine pH Ur Specific [place] Urine Protein Urine Glucose (UA) Urine Ketones Urine Blood Urine Nitrite Urine Bilirubin Urine Urobilinogen Ur Leukocyte Esterase Urine WBC (Auto) Urine RBC (Auto) Urine Casts (Auto) U Epithel Cells (Auto) Urine Bacteria (Auto) d-dimer negative lactic acid within normal limits with no leukocytosis Patient has negative troponin LIpase negative Patient has CTAP that shows fluid around the colon which is consistent with diarrheal illness. The patient was given 30 cc/kg of fluids with resolution of tachycardia and hypotension. The patient on re-examination is symptomatically better. Patient was given strict return precautions. No fever was noted on the patient. Discharge - Discharge Information Problems reviewed: Yes Clinical Impression/Diagnosis: Abdominal pain Condition: Good Disposition: HOME - Admission No - Follow up/Referral Referrals: Ty Ordaz MD [Primary Care Provider] - - Patient Discharge Instructions Additional Instructions: You were seen in the emergency department for the evaluation of your abdominal pain,. Your CT scan was within normal limits. Please follow up with your primary medical doctor within 1 week after discharge for follow up and care. Please return if you have worsening symptoms or new concerning symptoms. Thank you. - Post Discharge Activity Work/Back to School Note: Back to Work
[2020-01-15] MEDS ORDERED: SODIUM CHLORIDE IV ONE (12:51)
--- NOTE | 2020-01-15 13:02 | PDOC ---
Attending Attestation - Resident Resident Name: Ollie Barrientos - ED Attending Attestation I have performed the following: I have examined & evaluated the patient, The case was reviewed & discussed with the resident, I agree w/resident's findings & plan - HPI HPI: 01/15/20 13:01 64 y/o M with hx of IDDM, CAD s/p DC s/p PCIx1, HTN, HLD, asthma presents as states he inhaled bleach 01/11 and then developed fever, chills, body aches, cough, congestion, NBNB vomiting, watery diarrhea. He presented to the ED, yesterday for similar sx and generalized weakness. diarrhea and vomiting has improved. Went to see his PCP 3 days ago and was given rx for Ciprofloxacin (unsure why). he AMA'd on 01/14/20 last night with unremarkable workup except for lactic acidosis of 2.3 and tachycardia, rec'd CT a/p but pt had to leave to take his child to school. flu was neg, CXR unremarkable, UA and labs otherwise unremarkable. he was told he mostly had viral syndrome. 01/15/20 13:02 01/15/20 13:06 - Physicial Exam PE: 01/15/20 13:06 Agree with the resident's HPI and PE as documented in the electronic medical record. NAD, well appearing, EOMI, PERRL, nl conjunctiva, anicteric; neck supple. lungs clear, RRR, abdomen soft nontender. no rebound, guarding. Back nontender. BERNAL x4, no focal neuro deficits. No peripheral edema. normal color for ethnicity , WWP. - Medical Decision Making 01/15/20 13:08 Vital Signs Temp Pulse Resp BP Pulse Ox 98 F 112 H 20 100/50 L 99 01/15/20 11:41 01/15/20 11:41 01/15/20 11:41 01/15/20 11:41 01/15/20 11:41 ddx. sepsis, infection, viral syndrome, anemia, electrolyte/metabolic derangements reviewed workup and eval from yesterday will repeat lactic/labs dimer to eval for PE. trop/cardiac eval. IVF, repeat VS CT a/p reassess bedside renal sono neg for hydro, right pelvic cyst noted in kidney; bladder normal, volume 300ml. gb wnl, no e/o cholecystitis, cbd 3mm, wnl for age. 01/15/20 14:36 Laboratory results are within normal limits today, no leukocytosis, WBC count 5.6K, electrolytes within normal limits, glucoses well controlled, creatinine is also normal. Lactic acid today is normal at 1.4, no evidence of hepatitis or pancreatitis with normal LFTs/lipase. Troponin is negative x1 so unlikely to be cardiac. UA also recheck no evidence of infection. dimer is neg for patient <500 so unlikely PE 01/15/20 16:26 repeat VS normalized, no tachy, no fever or systemic sx. CT a/p neg for acute pathology, brittany with diarrheal illness/viral syndrome no abx needed labs and lytes wnl DC stable condition, hydration, supportive care, return precautions pt made aware of impression and plan Heart Score/ECG Review #1 ECG reviewed & interpreted by me at: 14:20 General ECG Interpretation: Sinus Rhythm, Normal Rate, Normal Intervals 01/15/20 14:56 EKG normal sinus rhythm 99 bpm, no interval abnormalities, wide QRS, incomplete RBBB, ST and T wave segments and morphology normal. Nonspecific T wave abnormalities
[2020-01-15 13:18] LABS: BASO % 0.5 % (0-2.0); EOS % 3.9 % (0-4.5); HEMATOCRIT 43.9 % (35.4-49); HEMOGLOBIN 14.7 GM/dL (11.7-16.9); LYMPH % 22.8 % (8-40); MCH 31.1 pg (25.7-33.7); MCHC 33.4 g/dl (32.0-35.9); MONO % 10.7 % (3.8-10.2); NEUT % 62.1 % (42.8-82.8); PLATELET COUNT 236 K/MM3 (134-434); RBC 4.72 M/mm3 (4.00-5.60); RDW 14.8 % (11.9-15.9); WHITE BLOOD COUNT 5.6 K/mm3 (4.0-10.0)
[2020-01-15 13:26] LABS: VENOUS PC02 52.1 mmHg (38-52)
[2020-01-15 13:27] LABS: VENOUS PO2 < 49 mmHg (28-48)
[2020-01-15 13:44] LABS: EPI CELLS 0.5 /HPF (0-5/HPF); HYALINE CASTS 0 /lpf (0-8); PH,URINE 5.5 (5.0-8.0); URINE APPEARANCE CLEAR; URINE BILIRUBIN NEGATIVE (NEGATIVE); URINE COLOR YELLOW; URINE GLUCOSE (UA) 3+ (NEGATIVE); URINE KETONE NEGATIVE (NEGATIVE); URINE LEUK ESTERASE NEGATIVE (NEGATIVE); URINE NITRITE NEGATIVE (NEGATIVE); URINE PROTEIN 2+ (NEGATIVE); URINE RBC 1 /hpf (0-4); URINE UROBILINOGEN 0.2 mg/dL (0.2-1.0); URINE WBC 0 /hpf (0-5)
[2020-01-15 14:07] LABS: ALBUMIN 3.2 g/dl (3.4-5.0); ALK PHOS 83 U/L (45-117); ANION GAP 6 MMOL/L (8-16); BILIRUBIN,TOTAL 0.2 mg/dL (0.2-1); BLOOD UREA NITROGEN 13.3 mg/dL (7-18); CALCIUM 8.9 mg/dL (8.5-10.1); CHLORIDE 108 mmol/L (98-107); CO2 25 mmol/L (21-32); GLUCOSE,RANDOM 161 mg/dL (74-106); LIPASE 115 U/L (73-393); POTASSIUM 4.3 mmol/L (3.5-5.1); SGOT/AST 17 U/L (15-37); SGPT/ALT 26 U/L (13-61); SODIUM 140 mmol/L (136-145); TOT PROT 6.5 g/dl (6.4-8.2)
[2020-01-15 14:47] LABS: INR 0.96 (0.83-1.09); PROTHROMBIN TIME (PATIENT) 11.3 SEC (9.7-13.0)
[2020-01-15 14:50] LABS: ACTIVATED PTT 34.5 SECONDS (25.2-36.5)
--- NOTE | 2020-01-15 16:10 | EKG ---
Test Reason : Blood Pressure : / mmHG Vent. Rate : 099 BPM Atrial Rate : 099 BPM P-R Int : 126 ms QRS Dur : 134 ms QT Int : 368 ms P-R-T Axes : 073 087 031 degrees QTc Int : 472 ms POOR DATA QUALITY, INTERPRETATION MAY BE ADVERSELY AFFECTED NORMAL SINUS RHYTHM RIGHT BUNDLE BRANCH BLOCK ABNORMAL ECG WHEN COMPARED WITH ECG OF 19-MAY-2018 22:28, NO SIGNIFICANT CHANGE WAS FOUND Confirmed by TARAN MAYA, RICHARD ([id number]) on 01/15/2020 4:09:54 PM Referred By: Confirmed By:RICHARD CHIRINOS MD
[2020-01-19 00:16] VITALS: BP 121/89; PULSE 98
== END 2020-01-15 18:07 | disposition home or self-care (01) ==
LOC: JER 11:37
PROC: BT43ZZZ Ultrasonography of Bilateral Kidneys (ICD-10-PCS; principal; 2020-01-15)
DX: R10.9 Unspecified abdominal pain (principal); I25.10 Atherosclerotic heart disease of native coronary artery without angina pectoris; I10 Essential (primary) hypertension; Z95.5 Presence of coronary angioplasty implant and graft; I25.2 Old myocardial infarction; E11.9 Type 2 diabetes mellitus without complications; Z79.4 Long term (current) use of insulin; E78.00 Pure hypercholesterolemia, unspecified; J45.909 Unspecified asthma, uncomplicated
CPT/HCPCS: 36415; 71045-TC-FY; 74177-TC; 76775; 80053; 81003; 82803; 83605; 83690; 84484; 85025; 85379; 85610; 85730; 87040; 87086; 93005; 93010; 99285-25; J7030; Q9967

== ENCOUNTER 2020-12-05 14:49 | Emergency (ER) | payer OTHER ==
[2020-12-05 14:57] VITALS: BP 125/84; PULSE 105; TEMP 97.2; BMI 27.7
== END 2020-12-05 16:44 | disposition home or self-care (01) ==
LOC: JER 14:49
DX: R05 Cough (principal); J06.9 Acute upper respiratory infection, unspecified; Z11.52 Encounter for screening for COVID-19
CPT/HCPCS: 71046-TC-FY; 99284-25; C9803; U0003

== ENCOUNTER 2021-06-21 13:01 | Emergency (ER) | payer OTHER ==
[2021-06-21 13:11] VITALS: TEMP 98.6; BMI 26.6
[2021-06-21] MEDS ORDERED: SODIUM CHLORIDE 0.9% 500 ML INFUS.BAG IV ONE (13:44)
[2021-06-21] MEDS ORDERED: ONDANSETRON 4 MG/2 ML VIAL IVPUSH ONE (13:44)
[2021-06-21] MEDS ORDERED: FAMOTIDINE 20 MG/50 ML IVPB 20 MG/50 ML MG IVPB ONE ×2 (13:44→14:46)
[2021-06-21] MEDS ORDERED: ONDANSETRON 4 MG/2 ML VIAL ONE (14:46)
[2021-06-21 16:24] VITALS: BP 96/58; PULSE 100
[2021-06-21 16:37] LABS: BASO % 0.2 % (0-2.0); EOS % 1.2 % (0-4.5); HEMATOCRIT 44.3 % (35.4-49); LYMPH % 4.3 % (8-40); MCH 30.9 pg (25.7-33.7); MCHC 33.8 g/dl (32.0-35.9); MEAN CELL VOLUME 91.4 fl (80-96); MEAN PLT VOLUME 7.9 fl (7.5-11.1); MONO % 4.9 % (3.8-10.2); NEUT % 89.4 % (42.8-82.8); PLATELET COUNT 249 10^3/uL (134-434); RBC 4.85 M/mm3 (4.00-5.60); RDW 14.4 % (11.9-15.9); WHITE BLOOD COUNT 16.7 K/mm3 (4.0-10.0)
[2021-06-21 16:53] LABS: CALCIUM 9.4 mg/dL (8.5-10.1)
[2021-06-21 16:54] LABS: ALBUMIN 4.2 g/dl (3.4-5.0); BLOOD UREA NITROGEN 30.2 mg/dL (7-18)
[2021-06-21 16:57] LABS: CREATININE 1.4 mg/dL (0.55-1.3)
[2021-06-21 16:58] LABS: BILIRUBIN,TOTAL 0.5 mg/dL (0.2-1); TOT PROT 7.5 g/dl (6.4-8.2)
== END 2021-06-21 17:16 | disposition left against medical advice (07) ==
LOC: JER 13:01
PROC: 3E033GC Introduction of Other Therapeutic Substance into Peripheral Vein, Percutaneous Approach (ICD-10-PCS; principal; 2021-06-21)
PROC: 3E033GC Introduction of Other Therapeutic Substance into Peripheral Vein, Percutaneous Approach (ICD-10-PCS; 2021-06-21)
DX: R19.7 Diarrhea, unspecified (principal); R10.84 Generalized abdominal pain
CPT/HCPCS: 36415; 80053; 83690; 85025; 96374; 96375; 99284-25; C9803; U0003; U0005

== ENCOUNTER 2021-07-01 18:11 | Inpatient (IN) | payer OTHER ==
[2021-07-01] MEDS ORDERED: methylPREDNISolone NA SUCC 125 MG/2 ML VIAL IVPB ONE (19:28)
[2021-07-01] MEDS ORDERED: methylPREDNISolone NA SUCC 125 MG/2 ML VIAL ONE (19:41)
[2021-07-01 19:44] LABS: BASO % 0.3 % (0-2.0); EOS % 3.2 % (0-4.5); HEMATOCRIT 41.3 % (35.4-49); HEMOGLOBIN 13.9 GM/dL (11.7-16.9); LYMPH % 25.5 % (8-40); MCH 30.8 pg (25.7-33.7); MCHC 33.8 g/dl (32.0-35.9); MEAN CELL VOLUME 91.2 fl (80-96); MEAN PLT VOLUME 7.4 fl (7.5-11.1); MONO % 5.3 % (3.8-10.2); NEUT % 65.7 % (42.8-82.8); PLATELET COUNT 337 10^3/uL (134-434); RBC 4.52 M/mm3 (4.00-5.60); RDW 14.4 % (11.9-15.9); WHITE BLOOD COUNT 8.7 K/mm3 (4.0-10.0)
[2021-07-01 20:02] LABS: CHLORIDE 108 mmol/L (98-107); SODIUM 132 mmol/L (136-145)
[2021-07-01 20:04] LABS: ALBUMIN 3.5 g/dl (3.4-5.0); BLOOD UREA NITROGEN 24.9 mg/dL (7-18); CALCIUM 8.4 mg/dL (8.5-10.1); CO2 22 mmol/L (21-32); GLUCOSE,RANDOM 95 mg/dL (74-106)
[2021-07-01 20:07] LABS: CREATININE 1.3 mg/dL (0.55-1.3); SGOT/AST 86 U/L (15-37)
[2021-07-01 20:09] LABS: BILIRUBIN,TOTAL 0.3 mg/dL (0.2-1); TOT PROT 7.7 g/dl (6.4-8.2)
[2021-07-01 20:10] LABS: ALK PHOS 92 U/L (45-117)
[2021-07-01 21:31] LABS: ANION GAP 3 MMOL/L (8-16); SGPT/ALT 24 U/L (13-61)
[2021-07-01 22:32] LABS: CALCIUM 8.7 mg/dL (8.5-10.1)
[2021-07-01 22:33] LABS: BLOOD UREA NITROGEN 25.9 mg/dL (7-18)
[2021-07-01 22:36] LABS: CREATININE 1.3 mg/dL (0.55-1.3)
[2021-07-02 03:24] VITALS: BMI 26.3
[2021-07-02] MEDS ORDERED: methylPREDNISolone NA SUCC 125 MG/2 ML VIAL IVPUSH ONE (03:29)
[2021-07-02] MEDS ORDERED: HEPARIN NA (PORCINE) 5,000 UNITS/ML 1ML VIAL SQ SCH (06:00)
[2021-07-02] MEDS: INSULIN (NOVOLOG) ASPART 100 UNITS/ML 10ML VIAL SQ SCH ×2 (06:56→11:54)
[2021-07-02] MEDS ORDERED: GEMFIBROZIL 600 MG TABLET (FP) PO SCH (07:00)
[2021-07-02] MEDS ORDERED: TAMSULOSIN HCL 0.4 MG CAP PO SCH (08:30)
[2021-07-02 08:50] LABS: CHOLESTEROL 176 mg/dL (50-200)
[2021-07-02 08:51] LABS: TRIGLYCERIDES 124 mg/dL (0-150)
[2021-07-02 08:52] LABS: LDL CHOLESTEROL (ONLY SJRH) 102 mg/dL (5-100)
[2021-07-02 08:53] LABS: HDL CHOLESTEROL 45 mg/dL (40-60)
[2021-07-02] MEDS ORDERED: ASPIRIN 81 MG CHEWABLE TABLETS PO SCH (10:00)
[2021-07-02] MEDS ORDERED: ENOXAPARIN NA (PORCINE) 40 MG/0.4 ML DISP.SYRIN SQ SCH (10:00)
[2021-07-02] MEDS ORDERED: CLOPIDOGREL BISULFATE 75 MG TABLET (FP) PO SCH (10:00)
[2021-07-02] MEDS ORDERED: PATIENT'S OWN MEDICATION (NON-FORMULARY) (Empagliflozin [Jardiance] 25 MG Tablet) PO SCH (10:00)
[2021-07-02] MEDS ORDERED: RANOLAZINE E.R. 500 MG TABLET (FP) PO SCH (11:15)
[2021-07-02] MEDS ORDERED: OMEGA-3 ACID ETHYL ESTERS (FATTY-ACIDS) 1 GM CAPSULE (FP) PO SCH (11:15)
[2021-07-02 13:46] LABS: CHLORIDE 106 mmol/L (98-107); SODIUM 137 mmol/L (136-145)
[2021-07-02 13:47] LABS: CALCIUM 9.1 mg/dL (8.5-10.1)
[2021-07-02 13:48] LABS: ANION GAP 13 MMOL/L (8-16); BLOOD UREA NITROGEN 29.9 mg/dL (7-18); CO2 19 mmol/L (21-32); GLUCOSE,RANDOM 237 mg/dL (74-106)
[2021-07-02 13:49] LABS: HEMATOCRIT 41.6 % (35.4-49); HEMOGLOBIN 14.1 GM/dL (11.7-16.9); MCH 31.2 pg (25.7-33.7); MEAN CELL VOLUME 91.7 fl (80-96); MEAN PLT VOLUME 7.9 fl (7.5-11.1); PLATELET COUNT 322 10^3/uL (134-434); RBC 4.54 M/mm3 (4.00-5.60); RDW 14.4 % (11.9-15.9); WHITE BLOOD COUNT 9.7 K/mm3 (4.0-10.0)
[2021-07-02 13:51] LABS: CREATININE 1.2 mg/dL (0.55-1.3)
[2021-07-02] MEDS ORDERED: PT OWN MED DRAWER 7, Y5N ONE (14:20)
[2021-07-02 14:24] LABS: ANISOCYTOSIS 1+; MACROCYTOSIS 0; PLATELET ESTIMATE NORMAL
[2021-07-02 16:19] VITALS: BP 132/78; PULSE 88; TEMP 97.2
[2021-07-02] MEDS ORDERED: ROSUVASTATIN CA 20 MG TABLET (FP) PO SCH (22:00)
== END 2021-07-02 16:19 | disposition home or self-care (01) | DRG 303 ==
LOC: JER 18:11 → JERBED 21:42 → OBSVTOIN 07-02 00:45 → J4S 07-02 03:19
PROVIDERS: ADMIT Internal Medicine; ATTEND Internal Medicine
DX: I25.10 Atherosclerotic heart disease of native coronary artery without angina pectoris (principal); T78.3XXA Angioneurotic edema, initial encounter; R07.89 Other chest pain; I10 Essential (primary) hypertension; E78.5 Hyperlipidemia, unspecified; J45.909 Unspecified asthma, uncomplicated; I25.2 Old myocardial infarction; E87.5 Hyperkalemia; Z95.5 Presence of coronary angioplasty implant and graft; R00.0 Tachycardia, unspecified; R00.2 Palpitations; I45.10 Unspecified right bundle-branch block; T46.4X5A Adverse effect of angiotensin-converting-enzyme inhibitors, initial encounter; Z86.73 Personal history of transient ischemic attack (TIA), and cerebral infarction without residual deficits
CPT/HCPCS: 36415; 71045-TC-FY; 80048; 80053; 80061; 82550; 82553; 82962; 84443; 84484; 85025; 86850; 86900; 86901; 93005; 93010; 99285-25; C9803; G0378; U0003; U0005

== ENCOUNTER 2022-08-28 14:55 | Emergency (ER) | payer OTHER ==
[2022-08-28 15:02] VITALS: BP 143/91; PULSE 105; RESP 18; TEMP 97.6; BMI 25.1
[2022-08-28 18:47] LABS: BASO % 0.7 % (0-2.0); EOS % 2.2 % (0-4.5); HEMATOCRIT 42.8 % (35.4-49); HEMOGLOBIN 14.3 GM/dL (11.7-16.9); LYMPH % 27.1 % (8-40); MCH 31.5 pg (25.7-33.7); MCHC 33.5 g/dl (32.0-35.9); MEAN PLT VOLUME 7.8 fl (7.5-11.1); MONO % 5.9 % (3.8-10.2); NEUT % 64.1 % (42.8-82.8); PLATELET COUNT 326 10^3/uL (134-434); RBC 4.55 M/mm3 (4.00-5.60)
[2022-08-28 19:15] LABS: ALBUMIN 4.2 g/dl (3.4-5.0); CALCIUM 10.1 mg/dL (8.5-10.1)
[2022-08-28 19:16] LABS: BLOOD UREA NITROGEN 41.2 mg/dL (7-18)
[2022-08-28 19:20] LABS: BILIRUBIN,TOTAL 0.4 mg/dL (0.2-1); CREATININE 1.2 mg/dL (0.55-1.3); TOT PROT 7.2 g/dl (6.4-8.2)
[2022-08-28] MEDS ORDERED: SODIUM ZIRCONIUM CYCLOSILICATE (LOKELMA) 5 GM PACKET PO SCH (19:30)
[2022-08-28] MEDS ORDERED: SODIUM ZIRCONIUM CYCLOSILICATE (LOKELMA) 5 GM PACKET ONE (19:34)
== END 2022-08-28 20:19 | disposition home or self-care (01) ==
LOC: JER 14:55
DX: S30.1XXA Contusion of abdominal wall, initial encounter (principal); R10.9 Unspecified abdominal pain; W11.XXXA Fall on and from ladder, initial encounter
CPT/HCPCS: 36415; 80053; 83690; 85025; 99283-25

== ENCOUNTER 2023-01-30 12:09 | Emergency (ER) | payer OTHER ==
[2023-01-30 12:19] VITALS: RESP 18; BMI 24.3
[2023-01-30] MEDS ORDERED: ACETAMINOPHEN 500 MG TABLET (FP) PO ONE (13:31)
[2023-01-30] MEDS ORDERED: ACETAMINOPHEN 500 MG TABLET (FP) ONE (13:33)
[2023-01-30 14:41] VITALS: BP 124/74; PULSE 94; TEMP 97.6
== END 2023-01-30 15:05 | disposition home or self-care (01) ==
LOC: JERFT 12:09 → JER 12:09 → JERFT 15:05
DX: M25.511 Pain in right shoulder (principal); V49.40XA Driver injured in collision with unspecified motor vehicles in traffic accident, initial encounter; Y93.I9 Activity, other involving external motion
CPT/HCPCS: 73030-TC-RT-FY; 99283-25

== ENCOUNTER 2024-10-25 10:53 | Observation (INO) | payer OTHER ==
[2024-10-25] MEDS ORDERED: METOCLOPRAMIDE HCL INJECTION 10 MG/2 ML VIAL ONE (11:56)
[2024-10-25] MEDS ORDERED: ACETAMINOPHEN INJECTION 100 ML ONE (11:57)
[2024-10-25] MEDS: ACETAMINOPHEN 1000 MG/100 ML BAG IVPB ONE (12:00)
[2024-10-25] MEDS: METOCLOPRAMIDE HCL INJECTION 10 MG/2 ML VIAL IVPB ONE (12:00)
[2024-10-25 12:36] LABS: BASO % 0.6 % (0-2.0); EOS % 4.6 % (0-4.5); HEMATOCRIT 47.1 % (35.4-49); HEMOGLOBIN 15.8 GM/dL (11.7-16.9); LYMPH % 19.5 % (8-40); MCH 31.2 pg (25.7-33.7); MCHC 33.6 g/dl (32.0-35.9); MEAN CELL VOLUME 92.8 fl (80-96); MEAN PLT VOLUME 7.8 fl (7.5-11.1); MONO % 6.9 % (3.8-10.2); NEUT % 68.4 % (42.8-82.8); PLATELET COUNT 229 10^3/uL (134-434); RBC 5.08 M/mm3 (4.00-5.60); RDW 15.2 % (11.9-15.9)
[2024-10-25] MEDS ORDERED: KETOROLAC TROMETHAMINE 15 MG/ML VIAL ONE ×2 (12:51→16:16)
[2024-10-25 12:53] LABS: ALBUMIN 3.4 g/dl (3.4-5.0); BLOOD UREA NITROGEN 17.4 mg/dL (7-18); CALCIUM 10.1 mg/dL (8.5-10.1); MAGNESIUM 1.7 mg/dL (1.8-2.4)
[2024-10-25 12:56] LABS: CHOLESTEROL 163 mg/dL (50-200); CREATININE 1.3 mg/dL (0.55-1.3)
[2024-10-25] MEDS: KETOROLAC TROMETHAMINE 15 MG/ML VIAL IVPUSH ONE ×2 (12:56→16:23)
[2024-10-25 12:57] LABS: LDL CHOLESTEROL (ONLY SJRH) 83 mg/dL (5-100); PHOSPHOROUS 3.7 mg/dL (2.5-4.9)
[2024-10-25 12:58] LABS: BILIRUBIN,TOTAL 0.6 mg/dL (0.2-1); HDL CHOLESTEROL 44 mg/dL (40-60); TOT PROT 6.6 g/dl (6.4-8.2)
[2024-10-25] MEDS ORDERED: MAGNESIUM SULFATE IN WATER 2 GM/50 ML IVPB IVPB ONE (12:59)
[2024-10-25 13:02] LABS: ACTIVATED PTT 38.6 SECONDS (25.2-36.5); INR 0.87 (0.83-1.09); PROTHROMBIN TIME (PATIENT) 9.9 SEC (9.7-13.0)
[2024-10-25] MEDS: MAGNESIUM SULFATE IN WATER 2 GM/50 ML IVPB IVPB ONE (13:04)
[2024-10-25 16:21] LABS: ERYTHROCYTE SEDIMENTATION RATE 42 mm/hr (0-20)
[2024-10-25] MEDS: LACTATED RINGERS SOLUTION 1000 ML INFUS.BAG IV ONE (16:23)
[2024-10-25] MEDS ORDERED: methylPREDNISolone NA SUCC 1000 MG/8 ML VIAL ONE ×2 (16:56→17:15)
[2024-10-25] MEDS: methylPREDNISolone NA SUCC 125 MG/2 ML VIAL IVPUSH ONE ×2 (17:02→17:23)
[2024-10-25] MEDS ORDERED: ALBUTEROL SO4 HFA INHALER IH PRN (22:41)
[2024-10-25] MEDS: INSULIN ASPART SLIDING SCALE (NOVOLOG) 1 VIAL SQ SCH (22:48)
[2024-10-25] MEDS ORDERED: ACETAMINOPHEN 325 MG TABLET (FP) PO PRN (23:07)
[2024-10-26] MEDS ORDERED: ALBUTEROL SO4 HFA INHALER IH ONE (00:28)
[2024-10-26] MEDS: amLODIPine BESYLATE 5 MG TABLET (FP) PO ONE (00:54)
[2024-10-26] MEDS: INSULIN (LEVEMIR) 100 UNITS/ML UNITS SQ SCH (06:21)
[2024-10-26 08:26] LABS: BASO % 0.1 % (0-2.0); HEMATOCRIT 40.4 % (35.4-49); HEMOGLOBIN 13.6 GM/dL (11.7-16.9); LYMPH % 7.8 % (8-40); MCHC 33.6 g/dl (32.0-35.9); MEAN CELL VOLUME 92.2 fl (80-96); MEAN PLT VOLUME 8.2 fl (7.5-11.1); MONO % 1.1 % (3.8-10.2); PLATELET COUNT 203 10^3/uL (134-434); RBC 4.38 M/mm3 (4.00-5.60); WHITE BLOOD COUNT 6.7 K/mm3 (4.0-10.0)
[2024-10-26 08:42] LABS: CALCIUM 8.8 mg/dL (8.5-10.1)
[2024-10-26 08:43] LABS: BLOOD UREA NITROGEN 28.3 mg/dL (7-18); MAGNESIUM 1.9 mg/dL (1.8-2.4)
[2024-10-26 08:46] LABS: CREATININE 1.7 mg/dL (0.55-1.3); PHOSPHOROUS 2.5 mg/dL (2.5-4.9)
[2024-10-26 08:48] LABS: BILIRUBIN,TOTAL 0.4 mg/dL (0.2-1); TOT PROT 5.8 g/dl (6.4-8.2)
[2024-10-26] MEDS: TAMSULOSIN HCL 0.4 MG CAP PO SCH (09:12)
[2024-10-26] MEDS: CLOPIDOGREL BISULFATE 75 MG TABLET (FP) PO SCH (09:13)
[2024-10-26] MEDS: metoPROLOL SUCCINATE 25 MG TAB.SR.24H (FP) PO SCH (09:13)
[2024-10-26] MEDS: EMPAGLIFLOZIN (JARDIANCE) 25 MG TABLET PO SCH (09:13)
[2024-10-26] MEDS: ASPIRIN COATED 81 MG TABLET.EC PO SCH (09:13)
[2024-10-26] MEDS: amLODIPine BESYLATE 5 MG TABLET (FP) PO SCH (09:13)
[2024-10-26] MEDS ORDERED: ENOXAPARIN NA (PORCINE) 40 MG/0.4 ML DISP.SYRIN SQ ONE (09:14)
[2024-10-26] MEDS: ENOXAPARIN NA (PORCINE) 40 MG/0.4 ML DISP.SYRIN SQ SCH (09:15)
[2024-10-26 10:49] LABS: ANISOCYTOSIS 0; HELMET CELLS 0; HOWELL-JOLLY BODIES 0; MACROCYTOSIS 0; OVALOCYTE 0; ROULEAU 0; SICKELED CELLS 0; TARGET CELLS 0; TEAR DROP CELLS 0; TOXIC GRANULATION 0
[2024-10-26 11:22] VITALS: RESP 18; BMI 28.2
[2024-10-26] MEDS: MELATONIN 5 MG TABLETS PO PRN (21:51)
[2024-10-26] MEDS: ATORVASTATIN CA 40 MG TABLET (FP) PO SCH (21:52)
[2024-10-26] MEDS: PANTOPRAZOLE 40 MG TABLET PO ONE (21:52)
[2024-10-26] MEDS: MAGNESIUM OXIDE 400 MG TABLET (FP) PO ONE (21:52)
[2024-10-27 09:41] LABS: HEMATOCRIT 40.4 % (35.4-49); MCH 30.2 pg (25.7-33.7); MCHC 32.1 g/dl (32.0-35.9); MEAN CELL VOLUME 93.9 fl (80-96); MEAN PLT VOLUME 8.1 fl (7.5-11.1); PLATELET COUNT 196 10^3/uL (134-434); RDW 15.3 % (11.9-15.9); WHITE BLOOD COUNT 8.5 K/mm3 (4.0-10.0)
[2024-10-27 09:47] LABS: POTASSIUM 4.2 mmol/L (3.5-5.1)
[2024-10-27 09:50] LABS: ALBUMIN 2.7 g/dl (3.4-5.0); BLOOD UREA NITROGEN 31.5 mg/dL (7-18); CALCIUM 8.6 mg/dL (8.5-10.1)
[2024-10-27 09:51] LABS: MAGNESIUM 2.1 mg/dL (1.8-2.4)
[2024-10-27 09:53] LABS: CREATININE 1.4 mg/dL (0.55-1.3)
[2024-10-27 09:55] LABS: BILIRUBIN,TOTAL 0.4 mg/dL (0.2-1); TOT PROT 5.4 g/dl (6.4-8.2)
[2024-10-27 10:37] LABS: ERYTHROCYTE SEDIMENTATION RATE 31 mm/hr (0-20)
[2024-10-27] MEDS ORDERED: diazePAM 5 MG TABLET PO PRN ×2 (12:51→14:52)
[2024-10-27] MEDS: ALBUTEROL SO4 0.083% IH SOL 2.5 MG/3 ML VIAL.NEB. NEB SCH ×2 (13:32→15:22)
[2024-10-27] MEDS ORDERED: ATORVASTATIN CA 40 MG TABLET (FP) PO SCH (14:55)
[2024-10-27 15:47] VITALS: BP 132/78; PULSE 94; TEMP 97.9
== END 2024-10-27 16:47 | disposition home or self-care (01) ==
LOC: JER 10:53 → JERBED 20:17 → J6S 10-26 11:05
PROVIDERS: ADMIT Internal Medicine; ATTEND Family Medicine
PROC: 3E033GC Introduction of Other Therapeutic Substance into Peripheral Vein, Percutaneous Approach (ICD-10-PCS; principal; 2024-10-25)
PROC: 3E013VG Introduction of Insulin into Subcutaneous Tissue, Percutaneous Approach (ICD-10-PCS; 2024-10-25)
PROC: 3E013GC Introduction of Other Therapeutic Substance into Subcutaneous Tissue, Percutaneous Approach (ICD-10-PCS; 2024-10-25)
PROC: 3E0337Z Introduction of Electrolytic and Water Balance Substance into Peripheral Vein, Percutaneous Approach (ICD-10-PCS; 2024-10-25)
DX: M31.6 Other giant cell arteritis (principal); G44.009 Cluster headache syndrome, unspecified, not intractable; J01.90 Acute sinusitis, unspecified; E83.42 Hypomagnesemia; I10 Essential (primary) hypertension; I25.10 Atherosclerotic heart disease of native coronary artery without angina pectoris; I25.2 Old myocardial infarction; J45.909 Unspecified asthma, uncomplicated; E11.9 Type 2 diabetes mellitus without complications; E78.5 Hyperlipidemia, unspecified; F17.200 Nicotine dependence, unspecified, uncomplicated; Z95.5 Presence of coronary angioplasty implant and graft; Z91.041 Radiographic dye allergy status; Z79.4 Long term (current) use of insulin; Z79.84 Long term (current) use of oral hypoglycemic drugs; Z86.73 Personal history of transient ischemic attack (TIA), and cerebral infarction without residual deficits
CPT/HCPCS: 0241U-QW; 36415; 70450-TC; 70486-TC; 70551-TC; 71045-TC-FY; 80053; 80061; 82550; 82962; 83036; 83735; 84100; 84484; 85025; 85027; 85610; 85651; 85730; 86140; 93005; 93010; 93306-TC; 96365; 96372; 96375; 96376; 97116-GP; 97162-GP; 99285-25; G0378; J0131

== ENCOUNTER 2025-07-03 11:34 | Observation (INO) | payer OTHER ==
[2025-07-03 11:42] VITALS: BMI 26.6
[2025-07-03 12:23] LABS: ABSOLUTE IMMATURE GRANULOCYTES 0.05 x10^3/uL (0.0-0.031); BASOPHILS # 0.07 x10^3/uL (0.01-0.08); EOSINOPHIL % 2.7 % (0.8-7.0); EOSINOPHILS # 0.24 x10^3/uL (0.04-0.54); MCHC 31.7 g/dl (32.3-36.5); MEAN CELL VOLUME 92.7 fl (79.0-92.2); MEAN PLT VOLUME 9.4 fl (9.4-12.4); MONOCYTE # 0.88 x10^3/uL (0.30-0.82); MONOCYTE % 9.8 % (5.3-12.2); RDW 15.0 % (12.2-16.4)
[2025-07-03] MEDS ORDERED: ASPIRIN 81 MG CHEWABLE TABLETS ONE (12:29)
[2025-07-03] MEDS: ASPIRIN 81 MG CHEWABLE TABLETS PO ONE (12:34)
[2025-07-03 12:47] LABS: INR 1.0 (0.83-1.09); PROTHROMBIN TIME (PATIENT) 10.9 SEC (9.7-13.0)
[2025-07-03 12:49] LABS: GLUCOSE,RANDOM 142.0 mg/dL (74-106)
[2025-07-03 12:50] LABS: CO2 21.0 mmol/L (21-32); TOT PROT 6.2 g/dl (6.4-8.2)
[2025-07-03 12:52] LABS: ALK PHOS 128.0 U/L (40-150)
[2025-07-03 12:55] LABS: CREATININE 1.7 mg/dL (0.55-1.3); SGOT/AST 33.0 U/L (5-34); SGPT/ALT 32.0 U/L (0-55)
[2025-07-03 13:15] LABS: HIV INTERPRETATION NEGATIVE (NEGATIVE)
[2025-07-03 14:08] LABS: HCV DIAGNOSTIC IN-HOUSE W/RFLX REACTIVE (NONREACTIVE)
[2025-07-03] MEDS: INSULIN ASPART SLIDING SCALE (NOVOLOG) 1 VIAL SQ SCH (17:06)
[2025-07-03] MEDS: ALBUTEROL SO4 HFA INHALER IH PRN (18:17)
[2025-07-03] MEDS: guaiFENesin 200 MG/10 ML 10 ML UNIT-DOSE CUPS PO PRN (18:18)
[2025-07-03] MEDS: RANOLAZINE E.R. 500 MG TABLET (FP) PO SCH (22:13)
[2025-07-03] MEDS: ATORVASTATIN CA 40 MG TABLET (FP) PO SCH (22:13)
[2025-07-03] MEDS: INSULIN GLARGINE (LANTUS) 100 UNITS/ML UNITS SQ SCH (22:14)
[2025-07-04] MEDS: INSULIN GLARGINE (LANTUS) 100 UNITS/ML UNITS SQ SCH (07:00)
[2025-07-04 07:04] LABS: ABSOLUTE IMMATURE GRANULOCYTES 0.05 x10^3/uL (0.0-0.031); BASOPHILS # 0.05 x10^3/uL (0.01-0.08); EOSINOPHIL % 2.7 % (0.8-7.0); EOSINOPHILS # 0.21 x10^3/uL (0.04-0.54); MCHC 32.3 g/dl (32.3-36.5); MEAN CELL VOLUME 90.9 fl (79.0-92.2); MEAN PLT VOLUME 9.7 fl (9.4-12.4); MONOCYTE # 0.90 x10^3/uL (0.30-0.82); MONOCYTE % 11.6 % (5.3-12.2); RDW 14.6 % (12.2-16.4)
[2025-07-04 08:25] LABS: GLUCOSE,RANDOM 185.0 mg/dL (74-106)
[2025-07-04 08:26] LABS: TOT PROT 5.8 g/dl (6.4-8.2)
[2025-07-04 08:27] LABS: CO2 20.0 mmol/L (21-32)
[2025-07-04 08:28] LABS: ALK PHOS 124.0 U/L (40-150)
[2025-07-04 08:31] LABS: CREATININE 1.72 mg/dL (0.55-1.3); LDL CHOLESTEROL (ONLY SJRH) 46.0 mg/dL (5-100); SGOT/AST 21.0 U/L (5-34); SGPT/ALT 29.0 U/L (0-55)
[2025-07-04] MEDS: TAMSULOSIN HCL 0.4 MG CAP PO SCH (08:54)
[2025-07-04] MEDS: PANTOPRAZOLE 40 MG TABLET PO SCH (09:07)
[2025-07-04] MEDS: ASPIRIN COATED 81 MG TABLET.EC PO SCH (09:07)
[2025-07-04] MEDS: CLOPIDOGREL BISULFATE 75 MG TABLET (FP) PO SCH (09:07)
[2025-07-04] MEDS: LORATADINE 10 MG TABLET PO SCH (10:11)
[2025-07-04] MEDS: CEFTRIAXONE 1 GM in DEXTROSE 5%-WATER - 50 ML IVPB SCH (10:11)
[2025-07-04] MEDS: FLUTICASONE PROP 0.05% 16 GM NASAL SPRAY NS SCH (10:12)
[2025-07-05] MEDS: ALBUTEROL SULFATE 0.021% (0.63 MG/3 ML) VIAL.NEB NEB SCH (15:21)
[2025-07-06 08:18] LABS: GLUCOSE,RANDOM 113.0 mg/dL (74-106)
[2025-07-06 08:19] LABS: TOT PROT 5.8 g/dl (6.4-8.2)
[2025-07-06 08:20] LABS: CO2 21.0 mmol/L (21-32)
[2025-07-06 08:21] LABS: ALK PHOS 116.0 U/L (40-150)
[2025-07-06 08:23] LABS: MCHC 32.4 g/dl (32.3-36.5); MEAN CELL VOLUME 90.3 fl (79.0-92.2); MEAN PLT VOLUME 9.4 fl (9.4-12.4); RDW 15.0 % (12.2-16.4)
[2025-07-06 08:24] LABS: CREATININE 1.84 mg/dL (0.55-1.3); SGOT/AST 23.0 U/L (5-34); SGPT/ALT 28.0 U/L (0-55)
[2025-07-06] MEDS ORDERED: EMPAGLIFLOZIN (JARDIANCE) 10 MG TABLET PO SCH (10:00)
[2025-07-06] MEDS: EZETIMIBE 10 MG TABLET (FP) PO SCH (10:05)
[2025-07-06] MEDS: DEXAMETHASONE 4 MG TABLET (FP) PO SCH (10:05)
[2025-07-06] MEDS: ACETAMINOPHEN 325 MG TABLET (FP) PO PRN (10:06)
[2025-07-06] MEDS: EMPAGLIFLOZIN (JARDIANCE) 10 MG TABLET PO SCH (10:23)
[2025-07-06] MEDS: INSULIN GLARGINE (LANTUS) 100 UNITS/ML UNITS SQ SCH (21:52)
[2025-07-06] MEDS: MONTELUKAST NA 10 MG TABLET PO SCH (21:53)
[2025-07-06] MEDS: ATORVASTATIN CA 80 MG TABLET (FP) PO SCH (21:53)
[2025-07-07] MEDS: INSULIN GLARGINE (LANTUS) 100 UNITS/ML UNITS SQ SCH (06:33)
[2025-07-07 11:24] VITALS: BP 141/85; PULSE 99; RESP 18; TEMP 97.5
== END 2025-07-07 13:21 | disposition home or self-care (01) ==
LOC: JER 11:34 → JERBED 13:21 → J4S 14:31
PROVIDERS: ADMIT Family Medicine; ATTEND Family Medicine
PROC: 3E0F7GC Introduction of Other Therapeutic Substance into Respiratory Tract, Via Natural or Artificial Opening (ICD-10-PCS; principal; 2025-07-03)
PROC: 3E03329 Introduction of Other Anti-infective into Peripheral Vein, Percutaneous Approach (ICD-10-PCS; 2025-07-03)
PROC: 3E013VG Introduction of Insulin into Subcutaneous Tissue, Percutaneous Approach (ICD-10-PCS; 2025-07-03)
DX: J06.9 Acute upper respiratory infection, unspecified (principal); I25.10 Atherosclerotic heart disease of native coronary artery without angina pectoris; J32.9 Chronic sinusitis, unspecified; R94.31 Abnormal electrocardiogram [ECG] [EKG]; E11.9 Type 2 diabetes mellitus without complications; I10 Essential (primary) hypertension; I25.2 Old myocardial infarction; Z95.5 Presence of coronary angioplasty implant and graft; Z87.891 Personal history of nicotine dependence
CPT/HCPCS: 36415; 71045-TC-FY; 80053; 80061; 82962; 83036; 84484; 85025; 85027; 85379; 85610; 86803; 87389; 87522; 87635; 87637-QW; 93005; 93010; 94640; 96365; 96372; 99285-25; G0378